=== PATIENT | female | born 1965 | race Caucasian/White ===

== ENCOUNTER 2016-04-28 14:18 | Emergency (ER) | payer SELFPAY | END 2016-04-28 21:00 | disposition home or self-care (01) | LOC: D.ER 14:18 | DX: T14.8 Other injury of unspecified body region (principal); X58.XXXA Exposure to other specified factors, initial encounter; Y93.89 Activity, other specified; Y92.89 Other specified places as the place of occurrence of the external cause; M25.561 Pain in right knee; M77.9 Enthesopathy, unspecified ==